=== PATIENT | female | born 1935 | race Caucasian/White ===

== ENCOUNTER 2019-03-06 14:06 | Inpatient (IN) | payer MEDICARE ==
[~2019-03-06] VITALS: Ht 154.9 cm; Wt 73.5 kg
[2019-03-06 15:20] LABS: BASOPHILS % (AUTO) 0.2 % (0.0-5.0); EOSINOPHILS % (AUTO) 0.4 % (0.0-8.0); HEMATOCRIT 33.5 % (36-48); LYMPHOCYTES % (AUTO) 10.8 % (21.0-51.0); MEAN CORPUSCULAR HEMOGLOBIN 33.6 pg (27.0-33.0); MEAN CORPUSCULAR HGB CONC 34.7 g/dL (32.0-36.0); MEAN CORPUSCULAR VOLUME 96.7 fL (79-99); NEUTROPHILS % (AUTO) 78.6 % (40.0-77.0); PLATELET COUNT (AUTO) 192 K/uL (130-400); RED BLOOD CELL COUNT(AUTO) 3.47 MIL/uL (4.00-5.50); RED CELL DISTRIBUTION WIDTH 14.1 % (11.0-15.5); WHITE BLOOD COUNT (AUTO) 6.4 K/uL (4.8-10.8)
[2019-03-06 15:29] LABS: CREATININE 0.7 mg/dL (0.5-1.5); INR 0.96 (0.85-1.15); PARTIAL THROMBOPLASTIN TIME 27.4 SEC (26.3-35.5); POTASSIUM 3.8 mmol/L (3.5-5.1); PROTHROMBIN TIME 10.1 SEC (9.6-11.6)
[2019-03-06 15:34] LABS: ALBUMIN 3.4 g/dL (3.5-5.0); BILIRUBIN,TOTAL 0.7 mg/dL (0.2-1.0)
[2019-03-06 15:39] LABS: CREATINE KINASE, TOTAL 40 U/L (21-232); MYOGLOBIN 30 ng/mL (10-92); TROPONIN I < 0.04 ng/mL (0.00-0.06)
[2019-03-06 16:00] LABS: B-TYPE NATRIURETIC PEPTIDE 161 pg/mL (0-100)
[2019-03-06] MEDS ORDERED: CEFTRIAXONE SODIUM 1 GM ONE (17:01)
[2019-03-06] MEDS ORDERED: METHYLPREDNISOLONE SOD SUCC 40MG/ML 1ML ONE (17:01)
[2019-03-06] MEDS ORDERED: AZITHROMYCIN 250 MG TABLET PO ONE (17:02)
[2019-03-06] MEDS ORDERED: SODIUM CHLORIDE 0.9% 50 ML IV ONE (17:02)
[2019-03-06] MEDS ORDERED: IPRATROPIUM 0.5 MG/2.5 ML INH IH ONE (17:21)
[2019-03-06] MEDS ORDERED: SODIUM CHLORIDE 0.9% 1000ML 1,000 ML IV ONE (17:36)
[2019-03-06] MEDS ORDERED: IOHEXOL-350 75 ML VIAL IV ONE (18:28)
[2019-03-06] MEDS ORDERED: ACETAMINOPHEN 325 MG TAB PO PRN (19:45)
[2019-03-06] MEDS ORDERED: METHYLPREDNISOLONE SOD SUCC 40MG/ML 1ML IVP SCH (21:00)
[2019-03-06 22:45] VITALS: BP 115/66
--- NOTE | 2019-03-06 22:45 | NUR ---
ADMISSION NOTE: Received to floor per stretcher from ER. Fully awake and responsive. AOx3. Continuously attached to O2 at 4LPM via NC with O2Sat at 94-96%. VS checked and recorded. Assessment done ( See CPOE flow chart for full assessment). Plan of care initiated. Home meds listed. Monitored and observed for any unusual changes. Needs attended and cared for. Denies feeling of discomfort. No apparent distress noted.
[2019-03-06] MEDS ORDERED: TRIA1TAB3 PO (23:19)
[2019-03-06] MEDS ORDERED: IRBE150T27 PO (23:19)
[2019-03-06] MEDS ORDERED: ESCI20TA36 PO (23:19)
[2019-03-06] MEDS ORDERED: ATOR10 PO (23:19)
[2019-03-06] MEDS ORDERED: OMEP-50 PO (23:19)
[2019-03-06] MEDS ORDERED: TIOT18CA3 IH (23:19)
[2019-03-06] MEDS ORDERED: ASPI-555 PO (23:19)
[2019-03-07 04:00] VITALS: BP 140/62
[2019-03-07 05:09] LABS: BASOPHILS % (AUTO) 0.3 % (0.0-5.0); EOSINOPHILS % (AUTO) 0.2 % (0.0-8.0); HEMATOCRIT 30.9 % (36-48); LYMPHOCYTES % (AUTO) 14.8 % (21.0-51.0); MEAN CORPUSCULAR HEMOGLOBIN 34.1 pg (27.0-33.0); MEAN CORPUSCULAR HGB CONC 35.1 g/dL (32.0-36.0); MEAN CORPUSCULAR VOLUME 97.1 fL (79-99); MONOCYTES % (AUTO) 11.4 % (3.0-13.0); NEUTROPHILS % (AUTO) 73.3 % (40.0-77.0); NUCLEATED RED BLOOD CELLS 0.1 % (0.0-0.19); PLATELET COUNT (AUTO) 183 K/uL (130-400); RED BLOOD CELL COUNT(AUTO) 3.19 MIL/uL (4.00-5.50); RED CELL DISTRIBUTION WIDTH 14.1 % (11.0-15.5); WHITE BLOOD COUNT (AUTO) 4.2 K/uL (4.8-10.8)
[2019-03-07 05:42] LABS: ALBUMIN 2.8 g/dL (3.5-5.0); BILIRUBIN,TOTAL 0.4 mg/dL (0.2-1.0); CREATININE 0.7 mg/dL (0.5-1.5); POTASSIUM 3.7 mmol/L (3.5-5.1); TOTAL PROTEIN, SERUM 6.3 g/dL (6.0-8.3)
--- NOTE | 2019-03-07 06:15 | NUR ---
ORA WILCOX ROUNDED: Seen and examined pt with an order to refer pt to [facility]. Home meds checked and resumed.
[2019-03-07] MEDS: PANTOPRAZOLE SODIUM 40 MG TABLET.DR PO SCH (06:38)
[2019-03-07] MEDS: BUDESONIDE 0.5 MG/2 ML INH IH SCH ×2 (06:45→18:15)
[2019-03-07 07:30] VITALS: BP 137/80
[2019-03-07] MEDS ORDERED: CEFTRIAXONE SODIUM 1 GM IVP SCH (09:00)
[2019-03-07] MEDS ORDERED: IRBESARTAN PO SCH (09:00)
[2019-03-07] MEDS ORDERED: AZITHROMYCIN 500MG+NS 250ML 250 ML IV SCH (09:00)
[2019-03-07] MEDS ORDERED: ENOXAPARIN SODIUM 30 MG/0.3 ML SQ SCH (09:00)
[2019-03-07] MEDS: CITALOPRAM 20 MG TABLET PO SCH (10:37)
[2019-03-07 11:00] VITALS: BP 132/70
--- NOTE | 2019-03-07 11:23 | NUR ---
Per patient and daughter, history of hemorrhagic stroke, was told by PCP not to take any form of anticoagulants, blood thinners, only Tylenol. No signs of current bleeding, hemorrhaging. Lovenox order was reviewed with Dr. Sheets, received orders to discontinue Lovenox and place order for SCDs.
[2019-03-07] MEDS: IPRATROPIUM 0.5 MG/2.5 ML INH IH SCH ×3 (11:26→23:30)
--- NOTE | 2019-03-07 12:02 | NUR ---
According to patient, takes Irbesartan 225 mg daily for blood pressure. Current blood pressure stable at 1387/84, denies headache, no redness to face. Requested patient to have family retrieve medication to be profiled by pharmacy for hospital dispensing as not available in hospital pharmacy. Patient will ask daughter to bring from home.
--- NOTE | 2019-03-07 15:44 | NUR ---
DCP CM met with pt discussed dc plans. Pt is independent prior to admission, lives at home alone, daughter and son in law lives close by. Pt has a cane and oxygen portable and stationary. Pt states she has a mine wirer that goes to her house every other week to clean. Denies any other equipments/services, pt still drives, daughter and son in case able to assists with transportation and needs as necessary. DC plan to home once stable. Addendum: 03/07/19 at 1547 by HUSEYIN BOYCE LVN CM Amended: Links added.
[2019-03-07 16:00] VITALS: BP 144/82
[2019-03-07] MEDS ORDERED: AMLO5TAB9 PO (16:34)
[2019-03-07] MEDS ORDERED: LEVOFLOXACIN 500 MG/D5W 100 ML 100 ML IV SCH ×2 (16:43→17:00)
[2019-03-07] MEDS: LOSARTAN 100 MG TABLET PO SCH (16:51)
--- NOTE | 2019-03-07 17:15 | NUR ---
Paged Dr. Trejo regarding starting home medication Amlodipine. Pending response.
--- NOTE | 2019-03-07 17:30 | NUR ---
Notified Dr. Trish Pinedo of BPs climbing to 140's, asymptomatic. Requested home medications to resume. Received order for Amlodipine 5 mg HS.
[2019-03-07 19:35] VITALS: BP 132/77
[2019-03-07] MEDS ORDERED: FLU VACC QS2019-20 36MOS UP/PF 60 MCG/0.5 ML ML IM ONE (19:51)
[2019-03-07] MEDS: METHYLPREDNISOLONE SOD SUCC 40MG/ML 1ML IVP SCH (19:58)
[2019-03-07] MEDS: ASPIRIN 81 MG EC TAB PO SCH (19:59)
[2019-03-07] MEDS: ATORVASTATIN CALCIUM 10 MG TABLET PO SCH (19:59)
[2019-03-07] MEDS: ZOSYN 3.375GM+NS 50ML 50 ML IV SCH (20:16)
[2019-03-07 23:30] VITALS: BP 149/82
[2019-03-08 04:00] VITALS: BP 142/79
[2019-03-08] MEDS: ZOSYN 3.375GM+NS 50ML 50 ML IV SCH ×3 (04:45→20:48)
[2019-03-08 06:04] LABS: HEMATOCRIT 31.3 % (36-48); MEAN CORPUSCULAR HEMOGLOBIN 33.9 pg (27.0-33.0); MEAN CORPUSCULAR HGB CONC 34.6 g/dL (32.0-36.0); MEAN CORPUSCULAR VOLUME 97.9 fL (79-99); PLATELET COUNT (AUTO) 196 K/uL (130-400); RED CELL DISTRIBUTION WIDTH 14.2 % (11.0-15.5); WHITE BLOOD COUNT (AUTO) 4.8 K/uL (4.8-10.8)
[2019-03-08] MEDS: IPRATROPIUM 0.5 MG/2.5 ML INH IH SCH ×4 (06:09→23:22)
[2019-03-08 06:20] LABS: CREATININE 0.7 mg/dL (0.5-1.5)
[2019-03-08] MEDS: BUDESONIDE 0.5 MG/2 ML INH IH SCH ×2 (06:20→18:36)
[2019-03-08] MEDS: PANTOPRAZOLE SODIUM 40 MG TABLET.DR PO SCH (06:34)
[2019-03-08 08:00] VITALS: BP 154/84
[2019-03-08] MEDS: METHYLPREDNISOLONE SOD SUCC 40MG/ML 1ML IVP SCH ×2 (10:19→20:48)
[2019-03-08] MEDS: LOSARTAN 100 MG TABLET PO SCH (10:19)
[2019-03-08] MEDS: CITALOPRAM 20 MG TABLET PO SCH (10:19)
[2019-03-08 11:29] VITALS: BP 159/98
[2019-03-08 16:20] VITALS: BP 161/96
--- NOTE | 2019-03-08 17:05 | NUR ---
Notified Dr. Trejo of increasing blood pressures to 160's systolic, asymptomatic. Patient currently receiving nebulizer treatment. Received order to give Amlodipine 5 mg PO now and resume BID beginning tomorrow morning.
[2019-03-08] MEDS ORDERED: AMLODIPINE BESYLATE 5 MG TAB PO ONE (17:10)
[2019-03-08] MEDS: LEVOFLOXACIN 500 MG/D5W 100 ML 100 ML IV SCH (17:29)
[2019-03-08 19:25] VITALS: BP 165/78
[2019-03-08] MEDS: ASPIRIN 81 MG EC TAB PO SCH (20:48)
[2019-03-08] MEDS: ATORVASTATIN CALCIUM 10 MG TABLET PO SCH (20:48)
[2019-03-08] MEDS ORDERED: AMLODIPINE BESYLATE 5 MG TAB PO SCH (21:00)
[2019-03-08 23:36] VITALS: BP 131/74
[2019-03-09 03:30] VITALS: BP 139/68
[2019-03-09] MEDS: ZOSYN 3.375GM+NS 50ML 50 ML IV SCH ×3 (05:56→20:03)
[2019-03-09] MEDS: PANTOPRAZOLE SODIUM 40 MG TABLET.DR PO SCH (05:56)
[2019-03-09 06:47] LABS: HEMATOCRIT 31.8 % (36-48); MEAN CORPUSCULAR HEMOGLOBIN 34.2 pg (27.0-33.0); MEAN CORPUSCULAR HGB CONC 35.2 g/dL (32.0-36.0); PLATELET COUNT (AUTO) 212 K/uL (130-400); RED BLOOD CELL COUNT(AUTO) 3.28 MIL/uL (4.00-5.50); WHITE BLOOD COUNT (AUTO) 5.1 K/uL (4.8-10.8)
[2019-03-09] MEDS: IPRATROPIUM 0.5 MG/2.5 ML INH IH SCH ×3 (06:51→18:21)
[2019-03-09 06:53] LABS: CREATININE 0.7 mg/dL (0.5-1.5)
[2019-03-09] MEDS: BUDESONIDE 0.5 MG/2 ML INH IH SCH ×2 (07:01→18:35)
--- NOTE | 2019-03-09 07:30 | NUR ---
note AAOX3. DENIES PAIN OR SOB. BBS CLEAR TO UPPER LOBES AND WITH SOME CRACKLES TO BASES BOTH LUNGS. SHE CAME IN WITH CAP. SHE USES O2 AT HOME 3LNC. SHE HAS BEEN ON 3 LITERS LATELY AND SHE REPORTS SHE FEELS BETTER THAN ON ADMISSION. NO COUGH OR PHLEGM NOTED. PULMONARY DOCTORS WILL COME SEE TODAY AND ACCORDING TO DR CAMMY VALLECILLO SHE MIGHT GO HOME ONCE [facility] HAS CLEARED HER FOR DISCHARGE.
[2019-03-09 07:57] VITALS: BP 155/91
[2019-03-09] MEDS: LOSARTAN 100 MG TABLET PO SCH (08:41)
[2019-03-09] MEDS: METHYLPREDNISOLONE SOD SUCC 40MG/ML 1ML IVP SCH (08:42)
[2019-03-09] MEDS: AMLODIPINE BESYLATE 5 MG TAB PO SCH ×2 (08:42→20:03)
[2019-03-09] MEDS: CITALOPRAM 20 MG TABLET PO SCH (08:42)
[2019-03-09 12:09] VITALS: BP 157/97
[2019-03-09] MEDS ORDERED: HOME MEDICATION 1 EACH PO SCH (12:15)
[2019-03-09] MEDS: TRIAMTERENE/HYDROCHLOROTHIAZID 37.5/25 MG TAB PO SCH (12:45)
[2019-03-09] MEDS ORDERED: FUROSEMIDE 10 MG/ML 4ML VIAL IV SCH (13:45)
[2019-03-09 16:43] VITALS: BP 156/85
[2019-03-09] MEDS: LEVOFLOXACIN 500 MG/D5W 100 ML 100 ML IV SCH (17:09)
--- NOTE | 2019-03-09 17:37 | NUR ---
note SPOKE TO ASHU WAGNER REGARDING PLAN OF CARE AND THERE HAS BEEN CHANGES TO MEDICATIONS AND SHE WILL START PREDNISONE IN AM AND RECEIVED ONE TIME DOSE OF LASIX.
[2019-03-09 19:20] VITALS: BP 157/82
[2019-03-09] MEDS: ATORVASTATIN CALCIUM 10 MG TABLET PO SCH (20:03)
[2019-03-09] MEDS: ASPIRIN 81 MG EC TAB PO SCH (20:03)
[2019-03-09 23:36] VITALS: BP 137/72
[2019-03-10] MEDS: IPRATROPIUM 0.5 MG/2.5 ML INH IH SCH ×3 (00:09→11:34)
[2019-03-10 03:30] VITALS: BP 145/75
[2019-03-10] MEDS: ZOSYN 3.375GM+NS 50ML 50 ML IV SCH (05:11)
[2019-03-10] MEDS: PANTOPRAZOLE SODIUM 40 MG TABLET.DR PO SCH (06:21)
[2019-03-10 06:36] LABS: HEMATOCRIT 34.4 % (36-48); MEAN CORPUSCULAR HEMOGLOBIN 34.1 pg (27.0-33.0); MEAN CORPUSCULAR VOLUME 97.3 fL (79-99); NUCLEATED RED BLOOD CELLS 0.1 % (0.0-0.19); PLATELET COUNT (AUTO) 197 K/uL (130-400); RED BLOOD CELL COUNT(AUTO) 3.54 MIL/uL (4.00-5.50); RED CELL DISTRIBUTION WIDTH 13.8 % (11.0-15.5); WHITE BLOOD COUNT (AUTO) 4.8 K/uL (4.8-10.8)
[2019-03-10 06:44] LABS: CREATININE 0.9 mg/dL (0.5-1.5); POTASSIUM 3.6 mmol/L (3.5-5.1)
[2019-03-10] MEDS: BUDESONIDE 0.5 MG/2 ML INH IH SCH (06:53)
[2019-03-10 08:00] VITALS: BP 161/107
--- NOTE | 2019-03-10 08:00 | NUR ---
IV SITE LEAKING, IV MED. STOPPED.
--- NOTE | 2019-03-10 08:23 | NUR ---
NOTE:ASHU WAGNER PRODUCTION CLERKS SUPERVISOR WITH [employer] IN TO SEE PT. AND LEFT DISCHARGE ORDERS. TO FOLLOW IN CLINIC 1 WEEK.
[2019-03-10] MEDS: TRIAMTERENE/HYDROCHLOROTHIAZID 37.5/25 MG TAB PO SCH (09:00)
[2019-03-10] MEDS ORDERED: TRIAMTERENE/HYDROCHLOROTHIAZID 37.5/25 MG TAB PO SCH (09:00)
[2019-03-10] MEDS ORDERED: TRIAMTERENE HCTZ PO SCH (09:00)
[2019-03-10] MEDS ORDERED: PREDNISONE 20 MG TABLET PO SCH (09:00)
[2019-03-10] MEDS: AMLODIPINE BESYLATE 5 MG TAB PO SCH (09:42)
[2019-03-10] MEDS: LOSARTAN 100 MG TABLET PO SCH (09:42)
[2019-03-10] MEDS: CITALOPRAM 20 MG TABLET PO SCH (09:42)
[2019-03-10 11:49] VITALS: BP 149/93
--- NOTE | 2019-03-10 14:30 | NUR ---
DISCHARGED NOW USING TEACH BACK. FOLLOW UP APPTS. IN PLACE AND DR. CHAWLA WILL CALL PHARMACY FOR NEW HOME MEDS.SALINE LOCK REMOVED PRIOR TO DISCHARGE. HOME O2 IN PLACE, NO C/O OR CONCERNS VOICED ASST. TO PRIVATE CAR PER DIRECTOR EQUIPMENT AND DAUGHTER PROVIDING TRANSPORTATION.
== END 2019-03-10 14:45 | disposition home or self-care (01) | DRG 193 ==
LOC: EDH 14:06 → EDHIP 17:17 → 3CH 22:24
PROVIDERS: ADMIT Internal Medicine Nephrology; ATTEND Internal Medicine Nephrology
DX: J18.9 Pneumonia, unspecified organism (principal); J96.21 Acute and chronic respiratory failure with hypoxia; J44.0 Chronic obstructive pulmonary disease with (acute) lower respiratory infection; J44.1 Chronic obstructive pulmonary disease with (acute) exacerbation; I10 Essential (primary) hypertension; E78.5 Hyperlipidemia, unspecified; F32.9 Major depressive disorder, single episode, unspecified; Z86.11 Personal history of tuberculosis; Z86.73 Personal history of transient ischemic attack (TIA), and cerebral infarction without residual deficits; Z99.81 Dependence on supplemental oxygen; Z98.1 Arthrodesis status; Z87.891 Personal history of nicotine dependence
CPT/HCPCS: 36415; 71045; 71046; 71275; 80048; 80053; 82550; 82948; 83874; 83880; 84484; 85025; 85027; 85610; 85730; 93005; 94640; 94664; 97039; G0008; G0378; J0696; J1650; J1940; J1956; J2543; J2920; J7030; Q2035; Q9967

== ENCOUNTER 2019-08-01 10:13 | Inpatient (IN) | payer MEDICARE ==
[~2019-08-01] VITALS: Ht 154.9 cm; Wt 75.6 kg
[~2019-08-01 10:13] MED LIST: AMLO5TAB9 PO; ASPI-555 PO; ATOR10 PO; ESCI20TA36 PO; IRBE150T24 PO; OMEP20CA12 PO; TIOT18CA3 IH; TRIA1TAB3 PO
[2019-08-01] MEDS ORDERED: SODIUM CHLORIDE 0.9% 10 ML VIAL IVP SCH (10:45)
[2019-08-01] MEDS ORDERED: ACETAMINOPHEN 325 MG TAB PO PRN (10:45)
[2019-08-01] MEDS ORDERED: METHYLPREDNISOLONE SOD SUCC 40MG/ML 1ML ONE (10:55)
[2019-08-01] MEDS ORDERED: LEVOFLOXACIN 500 MG/D5W 100 ML 100 ML ONE (10:56)
[2019-08-01] MEDS ORDERED: ZOSYN 3.375GM+NS 50ML 50 ML IV ONE (10:56)
[2019-08-01] MEDS ORDERED: IPRATROPIUM/ALBUTEROL SULFATE 3 ML SOLUTION IH ONE (11:07)
[2019-08-01 11:14] LABS: BASOPHILS % (AUTO) 0.2 % (0.0-5.0); CREATININE 0.8 mg/dL (0.5-1.5); EOSINOPHILS % (AUTO) 0.3 % (0.0-8.0); HEMATOCRIT 36.9 % (36-48); LYMPHOCYTES % (AUTO) 18.8 % (21.0-51.0); MEAN CORPUSCULAR HEMOGLOBIN 31.5 pg (27.0-33.0); MEAN CORPUSCULAR HGB CONC 33.1 g/dL (32.0-36.0); MEAN CORPUSCULAR VOLUME 95.3 fL (79-99); NEUTROPHILS % (AUTO) 69.4 % (40.0-77.0); PLATELET COUNT (AUTO) 244 K/uL (130-400); POTASSIUM 3.4 mmol/L (3.5-5.1); RED BLOOD CELL COUNT(AUTO) 3.87 MIL/uL (4.00-5.50); RED CELL DISTRIBUTION WIDTH 13.6 % (11.0-15.5); WHITE BLOOD COUNT (AUTO) 6.6 K/uL (4.8-10.8)
[2019-08-01 11:20] LABS: ALBUMIN 3.6 g/dL (3.5-5.0); BILIRUBIN,TOTAL 0.3 mg/dL (0.2-1.0); TOTAL PROTEIN, SERUM 7.5 g/dL (6.0-8.3)
[2019-08-01 11:26] LABS: RAPID GROUP A STREP NEGATIVE (NEGATIVE)
[2019-08-01 11:46] LABS: INFLUENZA TYPE A NEGATIVE FOR TYPE A (NEG)
[2019-08-01 11:47] LABS: INFLUENZA TYPE B NEGATIVE FOR TYPE B (NEG)
[2019-08-01] MEDS ORDERED: IPRATROPIUM/ALBUTEROL SULFATE 3 ML SOLUTION IH SCH (12:00)
[2019-08-01 12:25] VITALS: BP 141/77
[2019-08-01] MEDS ORDERED: LEVA1.2542 IH (12:47)
[2019-08-01] MEDS ORDERED: MULT-1203 PO (12:47)
[2019-08-01] MEDS ORDERED: ZOSYN 3.375GM+NS 50ML 50 ML IV SCH (13:00)
[2019-08-01] MEDS ORDERED: IPRATROPIUM 0.5 MG/2.5 ML INH IH SCH (14:00)
[2019-08-01] MEDS ORDERED: PHARMACY COMMUNICATION MISC SCH (14:45)
[2019-08-01 16:00] VITALS: BP 132/80
[2019-08-01] MEDS: IPRATROPIUM 0.5 MG/2.5 ML INH IH SCH ×2 (18:23→23:00)
[2019-08-01] MEDS: BUDESONIDE 0.5 MG/2 ML INH IH SCH (18:23)
[2019-08-01] MEDS: ACETYLCYSTEINE 10% 100MG/ML 4ML VIAL IH SCH ×2 (18:27→23:00)
[2019-08-01 20:00] VITALS: BP 147/78
[2019-08-01] MEDS ORDERED: FAMOTIDINE 20MG TAB 20 MG TAB PO SCH (21:00)
[2019-08-01] MEDS: METHYLPREDNISOLONE SOD SUCC 40MG/ML 1ML IVP SCH (21:50)
[2019-08-01] MEDS: ZOSYN 3.375GM+NS 50ML 50 ML IV SCH (22:10)
[2019-08-02] VITALS: BP 139/72
[2019-08-02 04:00] VITALS: BP 131/71
[2019-08-02 04:45] LABS: BASOPHILS % (AUTO) 0.2 % (0.0-5.0); MEAN CORPUSCULAR HEMOGLOBIN 31.4 pg (27.0-33.0); MEAN CORPUSCULAR HGB CONC 32.1 g/dL (32.0-36.0); MEAN CORPUSCULAR VOLUME 97.6 fL (79-99); MONOCYTES % (AUTO) 6.4 % (3.0-13.0); NEUTROPHILS % (AUTO) 78.9 % (40.0-77.0); PLATELET COUNT (AUTO) 212 K/uL (130-400); RED BLOOD CELL COUNT(AUTO) 3.38 MIL/uL (4.00-5.50); RED CELL DISTRIBUTION WIDTH 13.3 % (11.0-15.5); WHITE BLOOD COUNT (AUTO) 4.4 K/uL (4.8-10.8)
[2019-08-02 05:01] LABS: CREATININE 0.9 mg/dL (0.5-1.5); POTASSIUM 4.3 mmol/L (3.5-5.1)
[2019-08-02] MEDS: ZOSYN 3.375GM+NS 50ML 50 ML IV SCH ×3 (05:30→21:10)
[2019-08-02] MEDS: IPRATROPIUM 0.5 MG/2.5 ML INH IH SCH ×4 (06:47→23:10)
[2019-08-02] MEDS: ACETYLCYSTEINE 10% 100MG/ML 4ML VIAL IH SCH ×4 (06:47→23:10)
[2019-08-02] MEDS: BUDESONIDE 0.5 MG/2 ML INH IH SCH ×2 (07:11→18:25)
[2019-08-02 08:00] VITALS: BP 146/89
[2019-08-02] MEDS: PANTOPRAZOLE SODIUM 40 MG TABLET.DR PO SCH (10:47)
[2019-08-02] MEDS: AMLODIPINE BESYLATE 5 MG TAB PO SCH ×2 (10:47→21:10)
[2019-08-02] MEDS: MULTIVITAMIN TABLET PO SCH (10:47)
[2019-08-02] MEDS: LEVOFLOXACIN 500 MG/D5W 100 ML 100 ML IV SCH (10:47)
[2019-08-02] MEDS: CITALOPRAM 20 MG TABLET PO SCH (10:47)
[2019-08-02] MEDS: METHYLPREDNISOLONE SOD SUCC 40MG/ML 1ML IVP SCH ×2 (10:47→21:10)
[2019-08-02] MEDS: LOSARTAN 50 MG TABLET PO SCH (10:48)
[2019-08-02 12:00] VITALS: BP 144/77
[2019-08-02 16:00] VITALS: BP 144/79
--- NOTE | 2019-08-02 16:39 | NUR ---
INITIAL Patient lives alone. Emergency contact is daughter, Jermaine Meyer, . No home services. DME: nebulizer, O2 concentrator/portable. O2 is provided by [employer]. Patient is able to complete ADL's independently and drives. PCP is Dr. Nishi Pinedo. Pharmacy is [facility] located on [address]. DCP is home. Addendum: 08/02/19 at 1642 by RAMON GOODMAN SS Amended: Links added.
[2019-08-02 20:00] VITALS: BP 142/65
[2019-08-02] MEDS: ATORVASTATIN CALCIUM 20 MG TABLET PO SCH (21:10)
[2019-08-02] MEDS: ASPIRIN 81 MG EC TAB PO SCH (21:10)
[2019-08-03] VITALS: BP 120/72
[2019-08-03 04:00] VITALS: BP 161/87
[2019-08-03 05:35] LABS: CREATININE 0.9 mg/dL (0.5-1.5); POTASSIUM 4.6 mmol/L (3.5-5.1)
[2019-08-03 05:40] LABS: HEMATOCRIT 34.5 % (36-48); MEAN CORPUSCULAR HEMOGLOBIN 30.9 pg (27.0-33.0); MEAN CORPUSCULAR HGB CONC 32.2 g/dL (32.0-36.0); MEAN CORPUSCULAR VOLUME 96.1 fL (79-99); PLATELET COUNT (AUTO) 247 K/uL (130-400); RED BLOOD CELL COUNT(AUTO) 3.59 MIL/uL (4.00-5.50); RED CELL DISTRIBUTION WIDTH 13.2 % (11.0-15.5); WHITE BLOOD COUNT (AUTO) 5.4 K/uL (4.8-10.8)
[2019-08-03] MEDS: ZOSYN 3.375GM+NS 50ML 50 ML IV SCH ×3 (05:40→21:49)
[2019-08-03 06:15] LABS: BAND NEUTROPHILS % (MANUAL) 1 % (0-2); LYMPHOCYTES % (MANUAL) 10 % (22-44); MAN.DIFF COMMENT-IMPRESSION MANUAL DIFFERENTIAL; MONOCYTES % (MANUAL) 2 % (2-9); PLATELET MORPHOLOGY COMMENT ADEQUATE; REACTIVE LYMPHOCYTES 1 % (0-0); SEGMENTED NEUTROPHILS % 86 % (40-70)
[2019-08-03] MEDS: IPRATROPIUM 0.5 MG/2.5 ML INH IH SCH ×3 (07:05→17:47)
[2019-08-03] MEDS: ACETYLCYSTEINE 10% 100MG/ML 4ML VIAL IH SCH ×3 (07:05→17:47)
[2019-08-03] MEDS: BUDESONIDE 0.5 MG/2 ML INH IH SCH ×2 (07:27→17:47)
[2019-08-03 08:00] VITALS: BP 151/102
[2019-08-03] MEDS: MULTIVITAMIN TABLET PO SCH (10:16)
[2019-08-03] MEDS: AMLODIPINE BESYLATE 5 MG TAB PO SCH ×2 (10:16→21:49)
[2019-08-03] MEDS: CITALOPRAM 20 MG TABLET PO SCH (10:16)
[2019-08-03] MEDS: METHYLPREDNISOLONE SOD SUCC 40MG/ML 1ML IVP SCH ×2 (10:17→21:55)
[2019-08-03] MEDS: PANTOPRAZOLE SODIUM 40 MG TABLET.DR PO SCH (10:17)
[2019-08-03] MEDS: LEVOFLOXACIN 500 MG/D5W 100 ML 100 ML IV SCH (10:17)
[2019-08-03] MEDS: LOSARTAN 50 MG TABLET PO SCH (10:17)
[2019-08-03 11:00] VITALS: BP 153/88
[2019-08-03 16:00] VITALS: BP 148/82
[2019-08-03 20:00] VITALS: BP 135/76
[2019-08-03] MEDS: ASPIRIN 81 MG EC TAB PO SCH (21:49)
[2019-08-03] MEDS: ATORVASTATIN CALCIUM 20 MG TABLET PO SCH (21:49)
[2019-08-04] VITALS: BP 148/86
[2019-08-04] MEDS: IPRATROPIUM 0.5 MG/2.5 ML INH IH SCH ×5 (00:15→23:06)
[2019-08-04] MEDS: ACETYLCYSTEINE 10% 100MG/ML 4ML VIAL IH SCH ×3 (00:15→11:30)
[2019-08-04 04:01] VITALS: BP 152/86
[2019-08-04] MEDS: ZOSYN 3.375GM+NS 50ML 50 ML IV SCH ×3 (05:25→21:23)
[2019-08-04] MEDS: BUDESONIDE 0.5 MG/2 ML INH IH SCH ×2 (06:07→18:31)
[2019-08-04 08:05] VITALS: BP 157/90
[2019-08-04 08:43] LABS: HEMATOCRIT 37.2 % (36-48); MEAN CORPUSCULAR HEMOGLOBIN 31.1 pg (27.0-33.0); MEAN CORPUSCULAR HGB CONC 32.5 g/dL (32.0-36.0); MEAN CORPUSCULAR VOLUME 95.6 fL (79-99); PLATELET COUNT (AUTO) 275 K/uL (130-400); RED BLOOD CELL COUNT(AUTO) 3.89 MIL/uL (4.00-5.50); RED CELL DISTRIBUTION WIDTH 12.7 % (11.0-15.5); WHITE BLOOD COUNT (AUTO) 6.3 K/uL (4.8-10.8)
[2019-08-04 08:55] LABS: CREATININE 0.8 mg/dL (0.5-1.5); POTASSIUM 4.2 mmol/L (3.5-5.1)
[2019-08-04] MEDS: LEVOFLOXACIN 500 MG/D5W 100 ML 100 ML IV SCH (10:26)
[2019-08-04] MEDS: CITALOPRAM 20 MG TABLET PO SCH (10:29)
[2019-08-04] MEDS: LOSARTAN 50 MG TABLET PO SCH (10:29)
[2019-08-04] MEDS: MULTIVITAMIN TABLET PO SCH (10:30)
[2019-08-04] MEDS: AMLODIPINE BESYLATE 5 MG TAB PO SCH ×2 (10:30→21:23)
[2019-08-04] MEDS: PANTOPRAZOLE SODIUM 40 MG TABLET.DR PO SCH (10:30)
[2019-08-04] MEDS: METHYLPREDNISOLONE SOD SUCC 40MG/ML 1ML IVP SCH ×2 (10:33→21:24)
[2019-08-04 12:00] VITALS: BP 144/85
[2019-08-04 16:00] VITALS: BP 135/73
[2019-08-04 20:11] VITALS: BP 134/82
[2019-08-04] MEDS: ASPIRIN 81 MG EC TAB PO SCH (21:23)
[2019-08-04] MEDS: ATORVASTATIN CALCIUM 20 MG TABLET PO SCH (21:23)
[2019-08-05] VITALS (7 sets, daily range): BP systolic 144–159; BP diastolic 74–97
[2019-08-05] MEDS: ZOSYN 3.375GM+NS 50ML 50 ML IV SCH ×3 (04:36→21:05)
[2019-08-05] MEDS: BUDESONIDE 0.5 MG/2 ML INH IH SCH ×2 (06:40→18:41)
[2019-08-05] MEDS: IPRATROPIUM 0.5 MG/2.5 ML INH IH SCH ×4 (06:40→23:16)
[2019-08-05] MEDS: LEVOFLOXACIN 500 MG/D5W 100 ML 100 ML IV SCH (10:01)
[2019-08-05] MEDS: METHYLPREDNISOLONE SOD SUCC 40MG/ML 1ML IVP SCH ×2 (10:03→21:15)
[2019-08-05] MEDS: LOSARTAN 50 MG TABLET PO SCH (10:05)
[2019-08-05] MEDS: AMLODIPINE BESYLATE 5 MG TAB PO SCH ×2 (10:05→21:05)
[2019-08-05] MEDS: MULTIVITAMIN TABLET PO SCH (10:05)
[2019-08-05] MEDS: CITALOPRAM 20 MG TABLET PO SCH (10:06)
[2019-08-05] MEDS: PANTOPRAZOLE SODIUM 40 MG TABLET.DR PO SCH (10:06)
[2019-08-05] MEDS: ASPIRIN 81 MG EC TAB PO SCH (21:05)
[2019-08-05] MEDS: ATORVASTATIN CALCIUM 20 MG TABLET PO SCH (21:05)
--- NOTE | 2019-08-05 21:05 | NUR ---
MEDS SHIFT ASSESSMENT DONE, PLEASE REFER TO CHART. DUE MEDS ADMINISTERED, TOLERATED WELL. KEPT RESTED AND COMFORTABLE WITH HOB ELEVATED. CALL LIGHT WITHIN REACH. FAMILY AT BEDSIDE. Addendum: 08/06/19 at 0253 by AMERICO THAPA RN RN Amended: Links added.
[2019-08-05] MEDS: BENZONATATE 100 MG CAPSULE PO PRN (21:15)
--- NOTE | 2019-08-06 01:15 | NUR ---
SL PT RESTING WELL, FAIRLY ASLEEP. NO DISTRESS NOTED. KEPT RESTED AND COMFORTABLE. ZOSYN DOSE DONE, SALINE LOCKED PIV. CALL LIGHT WITHIN REACH. WILL MONITOR PT.
[2019-08-06 03:13] VITALS: BP 159/92
[2019-08-06] MEDS: ZOSYN 3.375GM+NS 50ML 50 ML IV SCH (05:42)
--- NOTE | 2019-08-06 05:42 | NUR ---
MEDS PT ALREADY AWAKE, NO CONCERNS VERBALIZED. IV ZOSYN HUNG. KEPT RESTED. FOR MORE CARE.
[2019-08-06] MEDS: IPRATROPIUM 0.5 MG/2.5 ML INH IH SCH ×4 (06:47→23:55)
[2019-08-06] MEDS: BUDESONIDE 0.5 MG/2 ML INH IH SCH ×2 (06:47→18:16)
[2019-08-06 08:02] VITALS: BP 156/84
[2019-08-06] MEDS: TRIAMTERENE/HYDROCHLOROTHIAZID 37.5/25 MG TAB PO SCH (09:00)
[2019-08-06] MEDS: LEVOFLOXACIN 500 MG/D5W 100 ML 100 ML IV SCH (09:09)
[2019-08-06] MEDS: BENZONATATE 100 MG CAPSULE PO PRN ×2 (09:15→20:25)
[2019-08-06] MEDS: MULTIVITAMIN TABLET PO SCH (09:16)
[2019-08-06] MEDS: METHYLPREDNISOLONE SOD SUCC 40MG/ML 1ML IVP SCH (09:16)
[2019-08-06] MEDS: CITALOPRAM 20 MG TABLET PO SCH (09:16)
[2019-08-06] MEDS: LOSARTAN 50 MG TABLET PO SCH (09:16)
[2019-08-06] MEDS: PANTOPRAZOLE SODIUM 40 MG TABLET.DR PO SCH (09:16)
[2019-08-06] MEDS: AMLODIPINE BESYLATE 5 MG TAB PO SCH ×2 (09:16→20:25)
[2019-08-06] MEDS: SODIUM CHLORIDE 45 ML SPRY NS SCH ×2 (09:49→20:25)
[2019-08-06 11:39] VITALS: BP 144/86
[2019-08-06 16:00] VITALS: BP 142/76
[2019-08-06 19:36] VITALS: BP 147/81
[2019-08-06] MEDS: ASPIRIN 81 MG EC TAB PO SCH (20:25)
[2019-08-06] MEDS: ATORVASTATIN CALCIUM 20 MG TABLET PO SCH (20:25)
--- NOTE | 2019-08-06 20:25 | NUR ---
MEDS SHIFT ASSESSMENT DONE, PLEASE REFER TO CHART. DUE MEDS ADMINISTERED, TOLERATED WELL. KEPT RESTED AND COMFORTABLE IN BED. CALL LIGHT WITHIN REACH. FAMILY AT BED SIDE. WILL MONITOR PT. Addendum: 08/07/19 at 0152 by AMERICO THAPA RN RN Amended: Links added.
[2019-08-06 23:35] VITALS: BP 147/82
--- NOTE | 2019-08-07 02:00 | NUR ---
ROUNDS PT RESTING WELL, NO DISTRESS NOTED. KEPT UNDISTURBED FOR NOW. WILL MONITOR PT. CALL LIGHT WITHIN REACH. FAMILY ASLEEP AT BEDSIDE.
[2019-08-07 03:46] VITALS: BP 157/88
[2019-08-07 05:41] LABS: HEMATOCRIT 33.5 % (36-48); MEAN CORPUSCULAR HEMOGLOBIN 31.6 pg (27.0-33.0); MEAN CORPUSCULAR HGB CONC 33.1 g/dL (32.0-36.0); MEAN CORPUSCULAR VOLUME 95.4 fL (79-99); PLATELET COUNT (AUTO) 298 K/uL (130-400); RED BLOOD CELL COUNT(AUTO) 3.51 MIL/uL (4.00-5.50); RED CELL DISTRIBUTION WIDTH 12.4 % (11.0-15.5); WHITE BLOOD COUNT (AUTO) 6.1 K/uL (4.8-10.8)
--- NOTE | 2019-08-07 05:47 | NUR ---
ROUNDS PT RESTING WELL, NO CONCERNS VERBALIZED. NO DISTRESS NOTED. KEPT COMFORTABLE. FOR MORE CARE.
[2019-08-07 06:15] LABS: ALBUMIN 2.7 g/dL (3.5-5.0); BILIRUBIN,TOTAL 0.2 mg/dL (0.2-1.0); CREATININE 0.8 mg/dL (0.5-1.5); POTASSIUM 3.8 mmol/L (3.5-5.1); TOTAL PROTEIN, SERUM 6.1 g/dL (6.0-8.3)
--- NOTE | 2019-08-07 06:20 | NUR ---
MD DR PAYAN IN TO SEE PT. NEW ORDERS GIVEN, PLEASE REFER TO CPOE. TURNED OFF O2 AT THIS TIME. WILL RE-ASSESS PT.
[2019-08-07] MEDS: IPRATROPIUM 0.5 MG/2.5 ML INH IH SCH (06:46)
[2019-08-07] MEDS: BUDESONIDE 0.5 MG/2 ML INH IH SCH (06:46)
[2019-08-07 07:19] LABS: EOSINOPHILS % (MANUAL) 1 % (1-6); LYMPHOCYTES % (MANUAL) 26 % (22-44); MAN.DIFF COMMENT-IMPRESSION MANUAL DIFFERENTIAL; MONOCYTES % (MANUAL) 10 % (2-9); SEGMENTED NEUTROPHILS % 63 % (40-70)
[2019-08-07 07:32] VITALS: BP 165/96
[2019-08-07] MEDS ORDERED: PREDNISONE 20 MG TABLET PO SCH (09:00)
[2019-08-07] MEDS: TRIAMTERENE/HYDROCHLOROTHIAZID 37.5/25 MG TAB PO SCH (09:00)
[2019-08-07] MEDS ORDERED: LEVOFLOXACIN 500 MG TABLET PO SCH (09:00)
[2019-08-07] MEDS: AMLODIPINE BESYLATE 5 MG TAB PO SCH (09:50)
[2019-08-07] MEDS: PANTOPRAZOLE SODIUM 40 MG TABLET.DR PO SCH (09:52)
[2019-08-07] MEDS: CITALOPRAM 20 MG TABLET PO SCH (09:52)
[2019-08-07] MEDS: LOSARTAN 50 MG TABLET PO SCH (09:52)
[2019-08-07] MEDS: MULTIVITAMIN TABLET PO SCH (09:53)
[2019-08-07] MEDS: SODIUM CHLORIDE 45 ML SPRY NS SCH (09:54)
== END 2019-08-07 10:25 | disposition home or self-care (01) | DRG 190 ==
LOC: EDH 10:13 → EDHIP 10:58 → 3DH 12:35
PROVIDERS: ADMIT Internal Medicine Nephrology; ATTEND Internal Medicine Nephrology
DX: J44.0 Chronic obstructive pulmonary disease with (acute) lower respiratory infection (principal); J18.9 Pneumonia, unspecified organism; J44.1 Chronic obstructive pulmonary disease with (acute) exacerbation; I10 Essential (primary) hypertension; E66.9 Obesity, unspecified; Z68.31 Body mass index [BMI] 31.0-31.9, adult; E78.5 Hyperlipidemia, unspecified; E87.6 Hypokalemia; F32.9 Major depressive disorder, single episode, unspecified; J20.9 Acute bronchitis, unspecified; Z86.11 Personal history of tuberculosis; Z86.73 Personal history of transient ischemic attack (TIA), and cerebral infarction without residual deficits; Z87.891 Personal history of nicotine dependence; Z98.1 Arthrodesis status; Z99.81 Dependence on supplemental oxygen; Z88.5 Allergy status to narcotic agent; Z88.8 Allergy status to other drugs, medicaments and biological substances; Z79.899 Other long term (current) drug therapy
CPT/HCPCS: 36415; 71045; 80048; 80053; 82948; 83880; 85025; 85027; 87040; 87804; 87880; 94640; 94664; G0378; J1956; J2543; J2920; J7608